=== PATIENT | male | born 1965 | race Hispanic/Latino ===

== ENCOUNTER → 2023-08-08 | Outpatient (CLI) | payer OTHER | END | disposition home or self-care (01) | LOC: RAH 09:47 | PROVIDERS: ATTEND Internal Medicine | DX: K80.20 Calculus of gallbladder without cholecystitis without obstruction (principal); K70.30 Alcoholic cirrhosis of liver without ascites; R16.1 Splenomegaly, not elsewhere classified | CPT/HCPCS: 76700 ==

== ENCOUNTER → 2024-01-17 | Outpatient (CLI) | payer OTHER | END | disposition home or self-care (01) | LOC: RAH 13:36 | PROVIDERS: ATTEND Internal Medicine | DX: M47.26 Other spondylosis with radiculopathy, lumbar region (principal); M48.07 Spinal stenosis, lumbosacral region | CPT/HCPCS: 72100 ==

== ENCOUNTER → 2024-02-14 | Outpatient (CLI) | payer OTHER | END | disposition home or self-care (01) | LOC: RAH 09:31 | PROVIDERS: ATTEND Internal Medicine | DX: S33.140A Subluxation of L4/L5 lumbar vertebra, initial encounter (principal); M48.061 Spinal stenosis, lumbar region without neurogenic claudication; M47.26 Other spondylosis with radiculopathy, lumbar region; X58.XXXA Exposure to other specified factors, initial encounter; Y92.89 Other specified places as the place of occurrence of the external cause; Y93.89 Activity, other specified; Y99.8 Other external cause status | CPT/HCPCS: 72148 ==

== ENCOUNTER → 2024-09-30 | Outpatient (CLI) | payer OTHER ==
--- NOTE | 2024-09-30 14:46 | HMCIMG ---
LUMBAR SPINE RADIOGRAPHS - 2-3 VIEWS INDICATION: Spondylolisthesis COMPARISON: 01/17/2024 FINDINGS: AP, lateral, and coned-down lateral views. L3-L5 fusion hardware and L4-L5 interbody spacer appear normal. Normal lordotic curvature of the lumbar spine is maintained. Five nonrib-bearing lumbar vertebral bodies are noted. No acute fracture or subluxation identified. Vertebral body heights are well-maintained. Multilevel mild anterior plate osteophytic spurring. L5-S1 fusion changes noted. Low-grade (6 mm) anterolisthesis of L4 upon L5, unchanged. Unchanged mild retrolisthesis of L2 upon L3 and L1 upon L2. Mild calcific plaque is noted along the abdominal aortic and iliac vessel crandall without aneurysmal dilation. IMPRESSION: Stable degenerative changes as described, without superimposed acute component.
== END | disposition home or self-care (01) ==
LOC: RAH 11:38
PROVIDERS: ATTEND Neurological Surgery
DX: M47.816 Spondylosis without myelopathy or radiculopathy, lumbar region (principal); M46.06 Spinal enthesopathy, lumbar region; M43.27 Fusion of spine, lumbosacral region; M43.16 Spondylolisthesis, lumbar region
CPT/HCPCS: 72100

== ENCOUNTER → 2025-03-24 | Outpatient (CLI) | payer OTHER ==
--- NOTE | 2025-03-25 06:44 | HMCIMG ---
EXAMINATION: ULTRASOUND OF THE ABDOMEN WITH COLOR DOPPLER. CLINICAL HISTORY: Alcoholic cirrhosis. COMPARISON: Ultrasound of the abdomen dated 08/08/2023. TECHNIQUE: Real-time grayscale ultrasound images of the abdomen. In addition, color Doppler is medically necessary to perform in order to evaluate vascularity and blood flow. FINDINGS: Liver: Normal in caliber, the right hepatic lobe measures 14.2 cm in the craniocaudal dimension. There is coarse echotexture of the hepatic parenchyma. There is no focal hepatic abnormality or intrahepatic biliary ductal dilatation. There is slow flow in the main portal vein (10 cm/s). Gallbladder: Contracted with normal wall thickness (0.40 cm). No hyperemia or pericholecystic free fluid. There is a calculus that measures 1.4 cm. Common bile duct is normal in caliber, measuring 0.50 cm. Spleen is bulky in caliber and measures 17.0 x 7.2 x 5.1 cm in craniocaudal, AP, and transverse dimensions respectively. No focal lesions. There are collaterals in the bria-splenic region Pancreas: Normal in caliber with heterogenous echotexture. No calcification or dilated pancreatic duct. The kidneys are normal in caliber, the right kidney measures 11.1 x 6.4 x 6.1 cm and the left kidney measures 10.7 x 4.9 x 4.5 cm in craniocaudal, AP, and transverse dimensions respectively. There is normal renal cortical thickness, and cortical echogenicity. There is no renal calculus or hydronephrosis. Visualized aspects of the abdominal aorta and inferior vena cava are unremarkable. IMPRESSION: Chronic liver disease. Contracted gallbladder with calculus. Mild splenomegaly. Heterogenous pancreas. To correlate with laboratory parameters. Bria-splenic collaterals and recanalized umbilical vein. Recommend CT of the abdomen and pelvis with contrast. /[place]
== END | disposition home or self-care (01) ==
LOC: RAH 10:07
PROVIDERS: ATTEND Internal Medicine
DX: K80.71 Calculus of gallbladder and bile duct without cholecystitis with obstruction (principal); K70.30 Alcoholic cirrhosis of liver without ascites; R16.1 Splenomegaly, not elsewhere classified
CPT/HCPCS: 76700

== ENCOUNTER 2025-06-09 08:32 | Day surgery (SDC) | payer OTHER ==
[2025-06-09] VITALS (11 sets, daily range): BP systolic 104–135; BP diastolic 52–71; PULSE 64–81; RESP 15–18; TEMP 97.8–98.1
[~2025-06-09] VITALS: Ht 175.3 cm; Wt 79.4 kg
[~2025-06-09 08:32] MED LIST: 0.9%NACL 1000ML 1,000 ML IV ONE
[2025-06-09] MEDS ORDERED: METF-446 PO (10:00)
[2025-06-09] MEDS ORDERED: GABA300C PO (10:00)
[2025-06-09] MEDS ORDERED: METO-391 PO (10:00)
[2025-06-09] MEDS ORDERED: SULI200T4 PO (10:00)
[2025-06-09] MEDS ORDERED: ATOR10 PO (10:00)
[2025-06-09] MEDS ORDERED: NISO34TA3 PO (10:00)
[2025-06-09] MEDS ORDERED: CYAN-106 PO (10:00)
[2025-06-09] MEDS ORDERED: ALLO100T PO (10:00)
[2025-06-09] MEDS ORDERED: LACT-441 PO (10:00)
[2025-06-09] MEDS ORDERED: FOLI0.8C PO (10:00)
--- NOTE | 2025-06-09 12:13 | NUR ---
Full and complete discharge instruction regarding Surgical procedure to Patient and Family. All questions answered. PIV removed with catheter tip intact. Tolerated fluids and voided in bathroom. W/C to POV with Family. D/C's W/C to POV with .
== END 2025-06-09 12:22 | disposition home or self-care (01) ==
LOC: DAH 08:32
PROVIDERS: ATTEND Internal Medicine Gastroenterology
DX: K70.30 Alcoholic cirrhosis of liver without ascites (principal); I85.10 Secondary esophageal varices without bleeding; K29.50 Unspecified chronic gastritis without bleeding; K76.6 Portal hypertension; K31.89 Other diseases of stomach and duodenum; I10 Essential (primary) hypertension; K57.90 Diverticulosis of intestine, part unspecified, without perforation or abscess without bleeding; K64.9 Unspecified hemorrhoids; K44.9 Diaphragmatic hernia without obstruction or gangrene; K80.20 Calculus of gallbladder without cholecystitis without obstruction; E11.9 Type 2 diabetes mellitus without complications; Z88.1 Allergy status to other antibiotic agents; Z88.8 Allergy status to other drugs, medicaments and biological substances; Z80.0 Family history of malignant neoplasm of digestive organs; Z79.84 Long term (current) use of oral hypoglycemic drugs; Z79.899 Other long term (current) drug therapy
CPT/HCPCS: 43244; 82948 ×2; 43239; J7030 ×2; J2704; A4620; A4215; A4223; A7002; A4222; A4221; A4663; A4606; J3490

== ENCOUNTER 2025-07-08 07:54 | Day surgery (SDC) | payer OTHER ==
[~2025-07-08] VITALS: Ht 175.3 cm; Wt 79.4 kg
[2025-07-08] VITALS (13 sets, daily range): BP systolic 108–129; BP diastolic 52–64; PULSE 65–82; RESP 15–19; TEMP 97.3–97.7
[~2025-07-08 07:54] MED LIST changes: -0.9%NACL 1000ML 1,000 ML IV ONE; +ALLO100T PO; +ATOR10 PO; +CYAN-106 PO; +FOLI0.8C PO; +METF-446 PO; +METO-391 PO; +NISO34TA3 PO; +SULI200T4 PO
[2025-07-08] MEDS: 0.9%NACL 1000ML 1,000 ML IV ONE (09:06)
== END 2025-07-08 12:31 | disposition home or self-care (01) ==
LOC: ENDO 07:54 → DAH 07:54 → ENDO 12:31
PROVIDERS: ATTEND Internal Medicine Gastroenterology
DX: K76.6 Portal hypertension (principal); I85.10 Secondary esophageal varices without bleeding; K70.30 Alcoholic cirrhosis of liver without ascites; K22.89 Other specified disease of esophagus; K31.89 Other diseases of stomach and duodenum; I10 Essential (primary) hypertension; E11.9 Type 2 diabetes mellitus without complications; K57.90 Diverticulosis of intestine, part unspecified, without perforation or abscess without bleeding; K64.9 Unspecified hemorrhoids; K31.A15 Gastric intestinal metaplasia without dysplasia, involving multiple sites; K21.9 Gastro-esophageal reflux disease without esophagitis; K80.20 Calculus of gallbladder without cholecystitis without obstruction; Z80.0 Family history of malignant neoplasm of digestive organs; Z88.8 Allergy status to other drugs, medicaments and biological substances; Z98.890 Other specified postprocedural states; Z79.84 Long term (current) use of oral hypoglycemic drugs; Z79.899 Other long term (current) drug therapy
CPT/HCPCS: 43244; 82948 ×2; J7030; J2704 ×2; A4620; A4215; J3490

== ENCOUNTER 2025-08-17 08:32 | Day surgery (SDC) | payer OTHER ==
[~2025-08-17] VITALS: Ht 175.3 cm; Wt 79.4 kg
[2025-08-17] VITALS (10 sets, daily range): BP systolic 100–130; BP diastolic 48–64; PULSE 66–77; RESP 14–24; TEMP 97.1–98.1
[2025-08-17] MEDS ORDERED: PRAV10TA37 PO (08:57)
[2025-08-17] MEDS ORDERED: ASPI-1005 PO (08:57)
[2025-08-17] MEDS: 0.9%NACL 1000ML 1,000 ML IV ONE (09:03)
[2025-08-17] MEDS ORDERED: LIDOCAINE HCL 400MG/20ML VIAL ONE (10:32)
== END 2025-08-17 11:40 | disposition home or self-care (01) ==
LOC: DAH 08:32 → ENDO 08:32
PROVIDERS: ATTEND Internal Medicine Gastroenterology
DX: I85.00 Esophageal varices without bleeding (principal); K70.30 Alcoholic cirrhosis of liver without ascites; K76.6 Portal hypertension; K31.89 Other diseases of stomach and duodenum; K31.A15 Gastric intestinal metaplasia without dysplasia, involving multiple sites; K21.00 Gastro-esophageal reflux disease with esophagitis, without bleeding; K44.9 Diaphragmatic hernia without obstruction or gangrene; E11.9 Type 2 diabetes mellitus without complications; Z80.0 Family history of malignant neoplasm of digestive organs; Z88.2 Allergy status to sulfonamides; Z79.899 Other long term (current) drug therapy; Z98.890 Other specified postprocedural states
CPT/HCPCS: 82948 ×2; 43244; 94640; J3490; J7030; J2704; A4620; A4215